=== PATIENT | female | born 1970 | race Caucasian/White ===

== ENCOUNTER 2022-02-16 01:15 | Observation (INO) | payer BC, OTHER ==
[2022-02-16 01:36] VITALS: BMI 36.8
[2022-02-16 02:35] LABS: BASO % 0.6 % (0-2.0); EOS % 1.5 % (0-4.5); HEMATOCRIT 37.4 % (32.4-45.2); HEMOGLOBIN 12.8 GM/dL (10.7-15.3); LYMPH % 11.9 % (8-40); MCHC 34.3 g/dl (32.0-36.0); MEAN CELL VOLUME 90.3 fl (80-96); MEAN PLT VOLUME 7.7 fl (7.5-11.1); MONO % 4.7 % (3.8-10.2); NEUT % 81.3 % (42.8-82.8); PLATELET COUNT 274 10^3/uL (134-434); RBC 4.14 M/mm3 (3.60-5.2); RDW 15.2 % (11.6-15.6); WHITE BLOOD COUNT 8.6 K/mm3 (4.0-10.0)
[2022-02-16 02:44] LABS: INR 0.91 (0.83-1.09); PROTHROMBIN TIME (PATIENT) 10.5 SEC (9.7-13.0)
[2022-02-16 02:47] LABS: ACTIVATED PTT 28.8 SECONDS (25.2-36.5)
[2022-02-16 03:00] LABS: CHLORIDE 105 mmol/L (98-107); SODIUM 139 mmol/L (136-145)
[2022-02-16 03:02] LABS: CALCIUM 7.7 mg/dL (8.5-10.1)
[2022-02-16 03:04] LABS: ALBUMIN 3.5 g/dl (3.4-5.0); ANION GAP 7 MMOL/L (8-16); BLOOD UREA NITROGEN 13.8 mg/dL (7-18); CO2 27 mmol/L (21-32); GLUCOSE,RANDOM 157 mg/dL (74-106)
[2022-02-16 03:06] LABS: CREATININE 0.9 mg/dL (0.55-1.3); SGOT/AST 55 U/L (15-37); SGPT/ALT 29 U/L (13-61)
[2022-02-16 03:07] LABS: BILIRUBIN,TOTAL 0.2 mg/dL (0.2-1); TOT PROT 6.9 g/dl (6.4-8.2)
[2022-02-16 03:09] LABS: ALK PHOS 73 U/L (45-117)
[2022-02-16] MEDS ORDERED: POTASSIUM CHLORIDE TABS 20 MEQ TABLET.ER (FP) PO ONE ×2 (03:26→04:32)
[2022-02-16] MEDS ORDERED: FLU VACC QS2021-22(6MOS UP)/PF 60 MCG/0.5 ML SYRINGE IM ONE (08:45)
[2022-02-16] MEDS ORDERED: PNEUMOC 13-VAL CONJ-DIP CRM/PF 0.5 ML DISP.SYRIN IM ONE (08:45)
[2022-02-16 09:39] LABS: HEMATOCRIT 38.2 % (32.4-45.2); MCH 30.6 pg (25.7-33.7); MCHC 33.9 g/dl (32.0-36.0); MEAN PLT VOLUME 7.8 fl (7.5-11.1); PLATELET COUNT 311 10^3/uL (134-434); RBC 4.25 M/mm3 (3.60-5.2); RDW 15.2 % (11.6-15.6); WHITE BLOOD COUNT 9.4 K/mm3 (4.0-10.0)
[2022-02-16] MEDS ORDERED: METOPROLOL TARTRATE 25 MG TABLET (FP) ONE (09:55)
[2022-02-16] MEDS ORDERED: ENOXAPARIN NA (PORCINE) 40 MG/0.4 ML DISP.SYRIN SQ ONE (09:56)
[2022-02-16] MEDS ORDERED: ASPIRIN 81 MG CHEWABLE TABLETS ONE (09:56)
[2022-02-16] MEDS ORDERED: PATIENT'S OWN MEDICATION (NON-FORMULARY) (Olmesartan/Hydrochlorothiazide [Benicar Hct 20-1 PO SCH (10:00)
[2022-02-16] MEDS ORDERED: METOPROLOL TARTRATE 25 MG TABLET (FP) PO SCH (10:00)
[2022-02-16 10:03] LABS: CALCIUM 8.3 mg/dL (8.5-10.1)
[2022-02-16 10:04] LABS: ALBUMIN 3.7 g/dl (3.4-5.0); BLOOD UREA NITROGEN 10.8 mg/dL (7-18); MAGNESIUM 2.2 mg/dL (1.8-2.4)
[2022-02-16 10:05] LABS: CHOLESTEROL 148 mg/dL (50-200)
[2022-02-16 10:06] LABS: CHOLESTEROL 148 mg/dL (50-200); TRIGLYCERIDES 69 mg/dL (0-150)
[2022-02-16 10:07] LABS: BILIRUBIN,TOTAL 0.4 mg/dL (0.2-1); CREATININE 0.7 mg/dL (0.55-1.3); LDL CHOLESTEROL (ONLY SJRH) 88 mg/dL (5-100); PHOSPHOROUS 3.5 mg/dL (2.5-4.9); TOT PROT 7.4 g/dl (6.4-8.2)
[2022-02-16 10:10] LABS: HDL CHOLESTEROL 56 mg/dL (40-60)
[2022-02-16] MEDS: ASPIRIN 81 MG CHEWABLE TABLETS PO SCH (10:30)
[2022-02-16] MEDS: ENOXAPARIN NA (PORCINE) 40 MG/0.4 ML DISP.SYRIN SQ SCH (10:49)
[2022-02-16] MEDS ORDERED: LOSARTAN POTASSIUM 50 MG TABLET ONE (12:13)
[2022-02-16] MEDS: HYDROCHLOROTHIAZIDE 12.5 MG CAPSULE (FP) PO SCH (12:25)
[2022-02-16] MEDS: LOSARTAN POTASSIUM 50 MG TABLET PO SCH (12:25)
[2022-02-17] MEDS: ENOXAPARIN NA (PORCINE) 40 MG/0.4 ML DISP.SYRIN SQ SCH (09:00)
[2022-02-17] MEDS: HYDROCHLOROTHIAZIDE 12.5 MG CAPSULE (FP) PO SCH (09:01)
[2022-02-17] MEDS: LOSARTAN POTASSIUM 50 MG TABLET PO SCH (09:01)
[2022-02-17] MEDS: ASPIRIN 81 MG CHEWABLE TABLETS PO SCH (09:02)
[2022-02-17] MEDS ORDERED: amLODIPine BESYLATE 5 MG TABLET (FP) PO ONE (09:35)
[2022-02-17] MEDS ORDERED: REGADENOSON 0.4 MG/5 ML PRE-FILLED SYRINGE IVPUSH ONE ×2 (09:50→11:15)
[2022-02-17] MEDS: NICOTINE 14 MG/24 HOURS TOPICAL PATCH TD SCH (12:00)
[2022-02-17] MEDS: metoPROLOL SUCCINATE 25 MG TAB.SR.24H (FP) PO SCH (12:00)
[2022-02-17] MEDS: CLOPIDOGREL BISULFATE 75 MG TABLET (FP) PO SCH (15:19)
[2022-02-17] MEDS: ASPIRIN COATED 81 MG TABLET.EC PO SCH (15:22)
[2022-02-18 06:45] VITALS: BP 104/65; PULSE 99; TEMP 97.7
[2022-02-18 06:50] LABS: BLOOD UREA NITROGEN 19.9 mg/dL (7-18); CALCIUM 8.5 mg/dL (8.5-10.1)
[2022-02-18 06:54] LABS: CREATININE 0.8 mg/dL (0.55-1.3)
[2022-02-18 06:56] LABS: INR 0.97 (0.83-1.09); PROTHROMBIN TIME (PATIENT) 11.1 SEC (9.7-13.0)
[2022-02-18 06:59] LABS: ACTIVATED PTT 31.2 SECONDS (25.2-36.5)
[2022-02-18] MEDS: metoPROLOL SUCCINATE 25 MG TAB.SR.24H (FP) PO SCH (09:09)
[2022-02-18] MEDS: ASPIRIN COATED 81 MG TABLET.EC PO SCH (09:09)
[2022-02-18] MEDS: LOSARTAN POTASSIUM 50 MG TABLET PO SCH (09:09)
[2022-02-18] MEDS: CLOPIDOGREL BISULFATE 75 MG TABLET (FP) PO SCH (09:09)
[2022-02-18] MEDS: NICOTINE 14 MG/24 HOURS TOPICAL PATCH TD SCH (09:18)
== END 2022-02-18 13:00 | disposition short-term general hospital (02) ==
LOC: JER 01:15 → JERBED 03:20 → UNDOADMOB 03:20 → INTOOBSV 03:20 → JERBED 14:40 → J4S 18:56
PROVIDERS: ADMIT Internal Medicine; ATTEND Internal Medicine
PROC: 3E023GC Introduction of Other Therapeutic Substance into Muscle, Percutaneous Approach (ICD-10-PCS; principal; 2022-02-16)
PROC: 3E033GC Introduction of Other Therapeutic Substance into Peripheral Vein, Percutaneous Approach (ICD-10-PCS; 2022-02-16)
DX: I24.9 Acute ischemic heart disease, unspecified (principal); R79.89 Other specified abnormal findings of blood chemistry; J45.909 Unspecified asthma, uncomplicated; I10 Essential (primary) hypertension; R00.0 Tachycardia, unspecified; E66.8 Other obesity; Z68.36 Body mass index [BMI] 36.0-36.9, adult; R77.8 Other specified abnormalities of plasma proteins; F17.210 Nicotine dependence, cigarettes, uncomplicated; Z29.9 Encounter for prophylactic measures, unspecified; Z82.49 Family history of ischemic heart disease and other diseases of the circulatory system
CPT/HCPCS: 36415; 71045-TC-FY; 78452-TC; 80048; 80053; 80061; 82465; 83036; 83735; 84100; 84484; 84703; 85025; 85027; 85610; 85730; 93005; 93010; 93017; 93306-TC; 99285-25; A9502; C9803-CS; G0378; J2785; U0003; U0005

== ENCOUNTER 2023-06-07 12:14 | Emergency (ER) | payer BC ==
[2023-06-07 12:22] VITALS: BP 140/76; PULSE 94; RESP 18; TEMP 97.9; BMI 35.9
== END 2023-06-07 14:01 | disposition home or self-care (01) ==
LOC: JER 12:14 → JERFT 12:14
PROC: 0H97XZZ Drainage of Abdomen Skin, External Approach (ICD-10-PCS; principal; 2023-06-07)
DX: L02.221 Furuncle of abdominal wall (principal)
CPT/HCPCS: 87070; 87186; 87205; 99283-25

== ENCOUNTER 2023-06-10 09:21 | Emergency (ER) | payer BC ==
[2023-06-10 09:26] VITALS: BP 108/72; PULSE 78; RESP 17; TEMP 97.8; BMI 35.6
== END 2023-06-10 10:13 | disposition home or self-care (01) ==
LOC: JERFT 09:21
DX: Z48.00 Encounter for change or removal of nonsurgical wound dressing (principal)
CPT/HCPCS: 99281-25